=== PATIENT | female | born 1950 | race Caucasian/White ===

== ENCOUNTER 2024-06-10 09:57 | Day surgery (SDC) | payer MEDICARE, BC ==
[2024-06-10] MEDS ORDERED: fentaNYL 100 MCG/2 ML SDV IV ONE (09:58)
[2024-06-10] MEDS ORDERED: Midazolam 1 MG/ML 2 ML SDV IV ONE (09:58)
[2024-06-10] MEDS ORDERED: Sodium Chloride 0.9% 10 ML Syringe FLUSH PRN (10:00)
[2024-06-10] MEDS: Lactated Ringers 1,000 ML IV SCH (10:53)
[2024-06-10] MEDS: acetaZOLAMIDE 500 MG Cap.ER PO ONE (11:54)
[2024-06-10 12:49] VITALS: BP 143/57; PULSE 45
== END 2024-06-10 12:19 | disposition home or self-care (01) ==
LOC: FB.SDS 09:57
PROVIDERS: ATTEND Ophthalmology
DX: E11.36 Type 2 diabetes mellitus with diabetic cataract (principal); H25.9 Unspecified age-related cataract; E11.22 Type 2 diabetes mellitus with diabetic chronic kidney disease; I12.9 Hypertensive chronic kidney disease with stage 1 through stage 4 chronic kidney disease, or unspecified chronic kidney disease; N18.31 Chronic kidney disease, stage 3a; E66.01 Morbid (severe) obesity due to excess calories; Z79.899 Other long term (current) drug therapy; Z79.84 Long term (current) use of oral hypoglycemic drugs; Z88.8 Allergy status to other drugs, medicaments and biological substances; Z68.41 Body mass index [BMI] 40.0-44.9, adult
CPT/HCPCS: 00142; 99100; A9270-GY; J2250; J3010; J7120; V2632